=== PATIENT | female | born 1975 ===

== ENCOUNTER 2018-08-22 17:14 | Emergency (ER) | payer OTHER ==
[2018-08-22 17:33] VITALS: RESP 20
--- NOTE | 2018-08-22 17:54 | C.PDOC ---
History Of Present Illness 43 y/o female with PMH of clotting disorder presents to the ER complaining of right ankle pain and swelling x 2 weeks. Pt states symptoms began suddenly one morning and have not subsided. Has not taken any medication for pain. Pt has no PMD. No recent travel/immobilization, tobacco use, estrogen use, or history of DVT/PE. Denies weakness, numbness, parasthesias, calf swelling, calf pain, CP, SOB, or any other associated symptoms. Time Seen by Provider: 08/22/18 17:40 Chief Complaint (Nursing): Lower Extremity Problem/Injury History Per: Patient History/Exam Limitations: no limitations Onset/Duration Of Symptoms: Days Current Symptoms Are (Timing): Still Present Severity: Moderate Past Medical History Reviewed: Historical Data, Nursing Documentation, Vital Signs Vital Signs: Last Vital Signs Temp 98 F 08/22/18 17:30 Pulse 77 08/22/18 17:30 Resp 20 08/22/18 17:30 BP 114/75 08/22/18 17:30 Pulse Ox 98 08/22/18 17:30 - Medical History Other PMH: Unknown Clotting Disorder Surgical History: Family History: States: No Known Family Hx - Social History Hx Tobacco Use: No Hx Alcohol Use: No Hx Substance Use: No Review Of Systems Except As Marked, All Systems Reviewed And Found Negative. Constitutional: Negative for: Fever, Chills Eyes: Negative for: Vision Change Cardiovascular: Negative for: Chest Pain, Palpitations Respiratory: Negative for: Cough, Shortness of Breath Gastrointestinal: Negative for: Nausea, Vomiting, Abdominal Pain Musculoskeletal: Positive for: Leg Pain (right ankle). Negative for: Neck Pain, Back Pain, Foot Pain Skin: Positive for: Other (swelling, right ankle). Negative for: Bruising Neurological: Negative for: Weakness, Numbness Physical Exam - Physical Exam Appears: Well, Non-toxic, No Acute Distress Skin: Normal Color, Warm, Dry, No Ecchymosis (right ankle) Head: Atraumatic, Normacephalic Eye(s): bilateral: Normal Inspection, PERRL, EOMI Nose: Normal Oral Mucosa: Moist Neck: Normal, Normal ROM, Supple Chest: Symmetrical Cardiovascular: Rhythm Regular Respiratory: Normal Breath Sounds Gastrointestinal/Abdominal: Normal Exam, Bowel Sounds (normal), Soft, No Tenderness Back: Normal Inspection Extremity: Normal ROM, Tenderness (tenderness to entirety of right ankle (-) warmth (-) redness), No Pedal Edema, No Calf Tenderness, Capillary Refill (<2s), No Deformity, Swelling (swelling to right ankle), Other (Calf circumferences equal) Extremity: Bilateral: Atraumatic, No Pedal Edema, Normal Color And Temperature, Normal ROM Pulses: Left Dorsalis Pedis: Normal, Right Dorsalis Pedis: Normal Neurological/Psych: Oriented x3, Normal Speech, Normal Motor, Normal Sensation Gait: Steady ED Course And Treatment O2 Sat by Pulse Oximetry: 98 (RA) Pulse Ox Interpretation: Normal Medical Decision Making Medical Decision Making: Initial Plan: * X-Ray Right Ankle * Reassess and Disposition Initial Impression: 43 y/o female with PMH of clotting disorder presenting with atraumatic right ankle pain and swelling x 2 weeks. Tenderness and swelling noted to right ankle on exam. No redness, warmth, calf swelling, calf tenderness, or SOB. Pulses and sensation intact. Vital signs stable. Progress Notes: Right Ankle XR negative for acute fracture or dislocation. Case discussed in depth with ED attending Dr. Javier, who recommends patient return tomorrow between 9am-4pm for right lower extremity venous duplex to r/o DVT. Explained to pt that vascular is not available at this time, and discussed importance of followup tomorrow morning for further testing given history of unknown clotting disorder. Pt has no other risk factors for DVT/PE. Patient is amenable to plan, and states she will return tomorrow for further evaluation. JOJO bandage applied by me, with instructions to keep extremity elevated. Plan of care discussed with patient, and strict instructions given regarding prescriptions, importance of follow up tomorrow morning, and other signs to return to Emergency Department, to include worsening pain, SOB, chest pain, calf swelling, or any other new/worsening symptoms. Patient verbalizes understanding of discussion. Patient A&Ox3, ambulating with steady gait, stable for discharge home. Disposition Counseled Patient/Family Regarding: Studies Performed, Diagnosis, Need For Followup, Rx Given - Disposition Referrals: [facility] at [facility] [Outside] Podiatry Clinic [Outside] Disposition: HOME/ ROUTINE Disposition Time: 19:00 Condition: STABLE Additional Instructions: Return to Emergency Department tomorrow morning between 9am-4pm for ultrasound of right lower extremity to rule out blood clot Keep ankle compressed and elevated Naproxen daily as needed for pain Followup with podiatry clinic within 2 days Return to ER for any new/worsening symptoms Prescriptions: Naproxen [Naprosyn] 500 mg PO DAILY PRN #14 tablet PRN Reason: Pain, Moderate (4-7) Instructions: Dependent Edema (DC) Forms: [employer] (Russian) - Clinical Impression Clinical Impression: Ankle swelling - 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 - Scribe Statement The provider has reviewed the documentation as recorded by the Makayla Mccabeq Provider Attestation All medical record entries made by the Makayla were at my direction and personally dictated by me. I have reviewed the chart and agree that the record accurately reflects my personal performance of the history, physical exam, medical decision making, and the department course for this patient. I have also personally directed, reviewed, and agree with the discharge instructions and disposition.
[2018-08-22 19:08] VITALS: BP 124/87; PULSE 85; TEMP 98.4
[2018-08-22 19:49] VITALS: O2SAT 98
--- NOTE | 2018-08-23 10:31 | RAD ---
Date of service: 08/22/2018 PROCEDURE: Right Ankle Radiographs. HISTORY: Right ankle pain, swelling COMPARISON: None available. FINDINGS: BONES: Normal. No fracture. JOINTS: Normal. No osteoarthritis. Ankle mortise maintained. Talar dome intact SOFT TISSUES: Mild diffuse bilateral soft tissue swelling. OTHER FINDINGS: None. IMPRESSION: No evidence of acute displaced fracture nor dislocation. Mild diffuse bilateral soft tissue swelling.
== END 2018-08-22 19:13 | disposition home or self-care (01) ==
LOC: C.ER 17:14
DX: M79.89 Other specified soft tissue disorders (principal)

== ENCOUNTER 2018-08-23 09:02 | Emergency (ER) | payer OTHER ==
[2018-08-23 09:06] VITALS: BMI 23.3
[2018-08-23 09:12] VITALS: TEMP 98.4
--- NOTE | 2018-08-23 09:16 | C.PDOC ---
History Of Present Illness 43yo female, comes to ER for further evaluation after she was seen here yesterday due to right leg swelling and pain. Patient was informed yesterday to return today for a US doppler study of her lower extremity. She denies any new injuries or trauma to her legs; denies any fever, chills, chest pain, or shortness of breath. No additional complaints. Time Seen by Provider: 08/23/18 09:13 Chief Complaint (Nursing): Lower Extremity Problem/Injury History Per: Patient History/Exam Limitations: no limitations Onset/Duration Of Symptoms: Days Past Medical History Reviewed: Historical Data, Nursing Documentation, Vital Signs Vital Signs: Last Vital Signs Temp 98.4 F 08/23/18 09:10 Pulse 86 08/23/18 09:10 Resp 17 08/23/18 09:10 BP 123/84 08/23/18 09:10 Pulse Ox 98 08/23/18 09:10 - Medical History PMH: Denies: HTN (Gestational) Surgical History: Family History: States: No Known Family Hx - Social History Hx Tobacco Use: No Hx Alcohol Use: No Hx Substance Use: No - Immunization History Hx Tetanus Toxoid Vaccination: No Hx Influenza Vaccination: No Hx Pneumococcal Vaccination: No Review Of Systems Except As Marked, All Systems Reviewed And Found Negative. Constitutional: Negative for: Fever, Chills Cardiovascular: Negative for: Chest Pain Respiratory: Negative for: Shortness of Breath Musculoskeletal: Positive for: Other (leg swelling) Physical Exam - Physical Exam Appears: Non-toxic, No Acute Distress Skin: Normal Color Head: Atraumatic, Normacephalic Eye(s): bilateral: Normal Inspection Neck: Normal ROM, Supple Chest: Symmetrical Cardiovascular: Rhythm Regular Respiratory: Normal Breath Sounds, No Wheezing Extremity: Normal ROM, Calf Tenderness (mild inconsistent bilateral calf tenderness), No Deformity, No Swelling Pulses: Left Dorsalis Pedis: Normal, Right Dorsalis Pedis: Normal Neurological/Psych: Oriented x3 ED Course And Treatment O2 Sat by Pulse Oximetry: 98 (RA) Pulse Ox Interpretation: Normal Progress Note: US Doppler lower extremities ordered. Doppler is negative for DVT Medical Decision Making Medical Decision Making: On re-exam, the patient resting comfortably. Lungs are CTA, heart is RRR, abdomen is soft, non-tender and tolerating PO well. Patient is ambulatory in the ED with steady gait. Follow up with the medical doctor within 1-2 days, Return if worsened, Disposition - Disposition Referrals: [facility] at [facility] [Outside] Orville Webb MD [Staff Provider] - Julius Johnson MD [Staff Provider] - Samantha Smith MD [Staff Provider] - Nikita Gomes MD [Staff Provider] - Disposition: HOME/ ROUTINE Disposition Time: 11:00 Condition: STABLE Additional Instructions: Follow up with the medical doctor within 1-2 days. Return if worsened. 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 - Scribe Statement The provider has reviewed the documentation as recorded by the Blaneibmary lou Ashraf Provider Attestation: All medical record entries made by the Blaneibmary lou were at my direction and personally dictated by me. I have reviewed the chart and agree that the record accurately reflects my personal performance of the history, physical exam, medical decision making, and the department course for this patient. I have also personally directed, reviewed, and agree with the discharge instructions and disposition.
[2018-08-23 11:27] VITALS: BP 132/89; PULSE 75; RESP 18
[2018-08-23 12:00] VITALS: O2SAT 98
--- NOTE | 2018-08-23 12:45 | VASCLAB ---
Date of service: 08/23/2018 PROCEDURE: Lower Extremity Venous Duplex Exam. HISTORY: bilateral leg swell and pain PRIORS: None. TECHNIQUE: Bilateral common femoral, femoral, popliteal and posterior tibial, peroneal and great saphenous veins were evaluated. Flow was assessed with color Doppler, compressibility, assessment of phasic flow and augmentation response. Report prepared by Rodrigue Chen, VAUGHN, RVT FINDINGS: RIGHT: 1. Common Femoral Vein: 1.1. Compressibility - Fully compressible: Thrombus - None : Flow - Phasic: Augmentation -Normal: Reflux - None. 2. Femoral Vein: 2.1. Compressibility - Fully compressible: Thrombus - None : Flow - Phasic: Augmentation -Normal: Reflux - None. 3. Popliteal Vein: 3.1. Compressibility - Fully compressible: Thrombus - None : Flow - Phasic: Augmentation -Normal: Reflux - None. 4. Posterior Tibial Vein: 4.1. Compressibility - Fully compressible: Thrombus - None: Flow - Phasic: Augmentation -Normal: Reflux - None. 5. Peroneal Vein: 5.1. Compressibility - Fully compressible: Thrombus - None: Flow - Phasic: Augmentation -Normal: Reflux - None. 6. Great Saphenous Vein: 6.1. Compressibility - Fully compressible: Thrombus - None: Flow - Phasic: Augmentation - Normal: Reflux - None. LEFT: 1. Common Femoral Vein: 1.1. Compressibility - Fully compressible: Thrombus - None: Flow - Phasic: Augmentation -Normal: Reflux - None. 2. Femoral Vein: 2.1. Compressibility - Fully compressible: Thrombus - None: Flow - Phasic: Augmentation -Normal: Reflux - None. 3. Popliteal Vein: 3.1. Compressibility - Fully compressible: Thrombus - None : Flow - Phasic: Augmentation -Normal: Reflux - None. 4. Posterior Tibial Vein: 4.1. Compressibility - Fully compressible: Thrombus - None: Flow - Phasic: Augmentation -Normal: Reflux - None. 5. Peroneal Vein: 5.1. Compressibility - Fully compressible: Thrombus - None: Flow - Phasic: Augmentation -Normal: Reflux - None. 6. Great Saphenous Vein: 6.1. Compressibility - Fully compressible: Thrombus - None: Flow - Phasic: Augmentation - Normal: Reflux - None. OTHER FINDINGS: Right: None significant. Left: None significant. IMPRESSION: Right: No evidence of deep or superficial vein thrombosis of the right lower extremity. Normal valve function noted of the right side. Left: No evidence of deep or superficial vein thrombosis of the left lower extremity. Normal valve function noted of the left side.
== END 2018-08-23 11:53 | disposition home or self-care (01) ==
LOC: C.ER 09:02
DX: R25.2 Cramp and spasm (principal)